=== PATIENT | female | born 1950 | race Caucasian/White ===

== ENCOUNTER 2017-11-13 11:11 | Day surgery (SDC) | payer MEDICARE | END 2017-11-13 13:05 | disposition home or self-care (01) | LOC: SSTAY O 11:11 | PROVIDERS: ATTEND Radiology Diagnostic Radiology | DX: I12.0 Hypertensive chronic kidney disease with stage 5 chronic kidney disease or end stage renal disease (principal); N18.4 Chronic kidney disease, stage 4 (severe); Z53.8 Procedure and treatment not carried out for other reasons | CPT/HCPCS: J7030 ==